=== PATIENT | female | born 1985 | race Caucasian/White ===

== ENCOUNTER → 2016-12-19 | Outpatient (CLI) | payer OTHER | LOC: FIMAGING 12:31 | PROVIDERS: ATTEND Obstetrics & Gynecology | DX: Z34.81 Encounter for supervision of other normal pregnancy, first trimester (principal); Z3A.12 12 weeks gestation of pregnancy ==

== ENCOUNTER → 2017-02-06 | Outpatient (CLI) | payer OTHER | LOC: FIMAGING 08:10 | PROVIDERS: ATTEND Obstetrics & Gynecology | DX: Z34.92 Encounter for supervision of normal pregnancy, unspecified, second trimester (principal); Z3A.19 19 weeks gestation of pregnancy ==

== ENCOUNTER 2017-06-26 18:00 | Inpatient (IN) | payer OTHER ==
[2017-06-26] MEDS ORDERED: LR 500 ML IV PRN (19:03)
[2017-06-26] MEDS ORDERED: OLIVE OIL 118 ML BTL MISC PRN (19:12)
[2017-06-26] MEDS ORDERED: LIDOCAINE 1% 300 MG/30 ML SDV SC PRN (19:12)
[2017-06-26] MEDS ORDERED: LR 1,000 ML IV PRN (19:12)
[2017-06-26] MEDS ORDERED: TERBUTALINE SULFATE 1 MG/ML VIAL IV PRN (19:12)
[2017-06-26] MEDS ORDERED: EPSOM SALT 454 GM TP PRN (19:12)
[2017-06-26] MEDS ORDERED: OXYTOCIN/RINGERS LACTATE 500 ML IV SCH (19:30)
[2017-06-26] MEDS ORDERED: OLIVE OIL 118 ML BTL ONE (20:02)
[2017-06-26] MEDS ORDERED: MISOPROSTOL 200 MCG TAB ONE (20:02)
[2017-06-26] MEDS ORDERED: LIDOCAINE 1% 300 MG/30 ML SDV ONE (20:02)
[2017-06-26] MEDS ORDERED: AMMONIA AROMATIC 1 EACH AMP IH ONE (20:02)
[2017-06-26] MEDS ORDERED: TERBUTALINE SULFATE 1 MG/ML VIAL ONE (20:02)
[2017-06-26] MEDS ORDERED: OXYTOCIN 10 UNIT/ML VIAL ONE (20:02)
[2017-06-26 20:03] LABS: % IMMATURE GRANULYOCYTES 0.6 % (0.0-1.1); ABSOLUTE IMMATURE GRANULOCYTES 0.07 10^3/uL (0.00-0.10); ADD DIFF? NO; ADD MORPH? NO; ADD SCAN? NO; ATYPICAL LYMPHOCYTE FLAG 0 (0-99); FRAGMENT RBC FLAG 0 (0-99); HEMATOCRIT 36.7 % (38.0-47.0); HEMOGLOBIN 12.2 g/dL (12.6-16.3); LEFT SHIFT FLG 0 (0-99); LIPEMIA HEMOLYSIS FLAG 80 (0-99); MEAN CELL HEMOGLOBIN 31.3 pg (27.9-34.1); MEAN CELL HEMOGLOBIN CONCENTR. 33.2 g/dL (32.4-36.7); MEAN CELL VOLUME 94.1 fL (81.5-99.8); MEAN PLATELET VOLUME 12.4 fL (8.7-11.7); PLATELET CLUMPS FLAG 20 (0-99); PLATELET COUNT 235 10^3/uL (150-400); RED CELL DISTRIBUTION WIDTH 13.2 % (11.5-15.2)
--- NOTE | 2017-06-26 20:05 | OBPROG ---
Labor Progress Note Assessment/Plan: Assessment:cat 1 fhr denies pain irregular contractions exam 380/-1 cephalic pitocin per protocol continuous monitoring Plan:pitocin per protocol epidural arom when able 06/26/17 20:05 Subjective/Intrapartum Course: 32 yo edc 06/27/2017 came over from the office with decreased movement for iol. exam in the office today 380/-1 cephalic. 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 Patient is RH negative significant other Gus. Cat 1 fhr on admission. pitocin per protocol for poc epidural and arom patient and family in agreement 06/26/17 19:52 - SVE Dilation (cm): 3 Effacement (%): 80 Station: -1 Membranes: Intact - Physical Exam General Appearance: WD/WN, alert, no apparent distress Respiratory: chest non-tender, lungs clear, normal breath sounds Cardiac/Chest: regular rate, rhythm Abdomen: normal bowel sounds Extremities: normal range of motion, Michelle's sign (negative bilaterally) DTR- Lower Extremities: Knee (R): 1+, Knee (L): 1+ Skin: normal color, warm/dry Neuro/Psych: no motor/sensory deficits, alert, normal mood/affect, oriented x 3 Oxytocin Orders Assessment - Pre-Induction/Augmentation Assessment Gestational Age: 39 week(s) and 6 day(s) ICD10 Worksheet Patient Problems: Problems Problem Status Onset Post-dates Acute
[2017-06-26] MEDS ORDERED: OXYTOCIN 30 UNIT in LR 500 ML IV SCH (20:30)
--- NOTE | 2017-06-26 20:36 | GHP ---
[f rep st] HISTORY AND PHYSICAL DATE OF ADMISSION: 06/26/2017 HISTORY OF PRESENT ILLNESS: The patient is a 32-year-old 2, para 1, living 1, with an EDC of 06/27/2017, who is 39 and 6/7 weeks, who comes to Labor and Delivery tonight with decreased movement for an elective induction of labor. [place] [facility] [place] Category 1 heart rate on admission. Denies leaking or bleeding. Feeling irregular cramping. Cephalic on exam in office today on 06/26/2017. Decided on induction of labor because of decreased movement today. Patient in the office today 3/80/-1.. MEDICAL HISTORY: Cystitis, history of HSV 2, prophylactic Valtrex from 36 weeks. GYNECOLOGIC HISTORY: Paragard discontinued in 06/2016, OCPs, NuvaRing, abnormal Pap in 2007, repeats have been within normal limits. SURGICAL HISTORY: [place] teeth extraction. FAMILY HISTORY: Noncontributory. SOCIAL HISTORY: The patient is . Denies drug use. Denies tobacco use. Denies alcohol use. PREVIOUS HISTORY: 01/2015, 7 pounds 7 ounces, 41 and 1/7th weeks, 9 hours of labor, spontaneous vaginal delivery with an epidural. Induction of labor for post dates. PHYSICAL ASSESSMENT: GENERAL: The patient is awake, alert, oriented x3. LUNGS : Clear bilaterally. ABDOMEN: Bowel sounds are positive in all 4 quadrants. EXTREMITIES: DTRs are 1+ bilaterally. Homans sign is negative bilaterally. PELVIC: Category 1 heart rate. Contractions are irregular. On exam, 3, 80 -1 cephalic. LABORATORY DATA: Patient is A negative. Antibody negative. RPR is nonreactive. Hepatitis is negative. Rubella is immune. HIV is negative. Trio screen in 2013 was negative. AFP is negative. Gonorrhea and chlamydia are negative. Pap on 06/30/2016 was negative. One-hour GTT was within normal limits. RhoGAM was received on 04/06/2017. Toxoplasmosis was negative. GBS is negative. PLAN OF CARE: Induction of labor for decreased movement at the patient's request at 39 and 6/7 weeks. Pitocin per protocol. Epidural for pain relief at patient's request. GBS is negative. Consult Dr. Sara Jimenes for plan of care. /[id number]/MODL MTDD
[2017-06-26] MEDS ORDERED: OXYTOCIN/RINGERS LACTATE 1,000 ML IV PRN (20:47)
[2017-06-26] MEDS ORDERED: PHENYLEPHRINE HCL 100 MCG/ML SYR ONE (23:32)
[2017-06-26] MEDS ORDERED: BUPIVACAINE 0.25% 30 ML SDV ONE (23:32)
[2017-06-26] MEDS ORDERED: fentaNYL 2MCG/ML/BUP 0.1% RTU 100 ML BAG EP ONE (23:32)
[2017-06-26] MEDS ORDERED: fentaNYL 100 MCG/2 ML INJ ONE (23:33)
[2017-06-27] MEDS ORDERED: PHENYLEPHRINE HCL 100 MCG/ML SYR IVP PRN (00:37)
[2017-06-27] MEDS ORDERED: ONDANSETRON 4 MG/2 ML VIAL IVP PRN (00:37)
--- NOTE | 2017-06-27 00:39 | POSTANESTH ---
Post Anesthetic Evaluation Cardiovascular Status: Normal, Stable Respiratory Status: Normal, Stable Level of Consciousness/Mental Status: Can Participate in Eval Pain Control: Adequate, Prn Tx Ordered Nausea/Vomiting Control: Adequate, Prn Tx Ordered Complications Possibly Related to Anesthesia: None Noted
--- NOTE | 2017-06-27 00:43 | PREANESOB ---
Obstetric Pre-Anesthesia Info - General Info Proposed Procedure: Labor and delivery with pitocin. : 2 Para: 0 WBD: 40 - Info Status: Full Term Monitors: External FHR Baseline (bpm): 130 FHR Pattern: Reassuring - Labor Status Cervical Dilation per last OB SVE: 3 Station per last OB SVE: -1 Pitocin: In Use Indications for Labor Analgesia: Induction of Labor, Pain Control Labor Epidural: Proposed Anesthesia ROS: Prior labor epidural. Benadryl causes agitation. Allergies/Adverse Reactions: Allergy/AdvReac Type Severity Reaction Status Date / Time No Known Allergies Allergy Verified 06/26/17 19:29 Home Medications: Medication Instructions Recorded Iron/Docusate Sodium 65 mg PO DAILY 06/26/17 [Benita-Sequels 65 mg] 1 tab PO DAILY 06/26/17 valACYclovir [Valtrex (*)] 1 tab PO DAILY 06/26/17 Visit Medications: Generic Name Dose Route Start Last Admin Trade Name Freq PRN Reason Stop Dose Admin Lactated Ringer's 500 mls @ 500 mls/hr 06/26/17 19:03 Lr IV PRN PRN Maternal Hypotension Lactated Ringer's 1,000 mls @ 0 mls/hr 06/26/17 19:12 Lr IV 12/23/17 19:11 PRN PRN SEE PROTOCOL CONDITIONS Protocol Per Protocol Oxytocin 30 unit/ Lactated 503 mls @ 0 mls/hr 06/26/17 20:30 Ringer's IV 12/23/17 19:29 CONT JULISSA Protocol Per Protocol Oxytocin/Lactated Ringer's 1,000 mls @ 150 mls/hr 06/26/17 20:47 Pitocin 20 Units/Lr (Premix) IV PRN PRN Post- bleeding Fentanyl/Bupivacaine HCl 100 mls @ 0 mls/hr 06/27/17 01:00 Fentanyl/Bupivacaine/Ns 2 Mcg/Ml 0.1% (Premix EP 07/07/17 00:59 CONT JULISSA Protocol As Directed Lactated Ringer's 500 mls @ 0 mls/hr 06/27/17 01:00 Lr IV 12/24/17 00:59 CONT [facility] As Directed Ibuprofen 600 mg 06/26/17 19:12 Motrin PO 12/23/17 19:11 Q6HRS PRN post , inflammation Lidocaine HCl 300 mg 06/26/17 19:12 Lidocaine Hcl 1% SC 12/23/17 19:11 ONCE PRN episiotomy Magnesium Sulfate 454 gm 06/26/17 19:12 Epsom Salt TP 12/23/17 19:11 Q1H PRN perineal discomfort [place] Oil 118 ml 06/26/17 19:12 Sweet Oil MISC 12/23/17 19:11 ONCE PRN perineal massage Ondansetron HCl 4 mg 06/27/17 00:37 Zofran IVP 12/24/17 00:36 Q4HRS PRN Nausea/Vomiting, Can't Take PO Phenylephrine HCl 100 mcg 06/27/17 00:37 Neosynephrine IVP 12/24/17 00:36 .Q2M PRN Hypotension Terbutaline Sulfate 0.25 mg 06/26/17 19:12 Brethine IV 12/23/17 19:11 ONCE PRN Tachysystole Discontinued Medications Generic Name Dose Route Start Last Admin Trade Name Freq PRN Reason Stop Dose Admin Ammonia (Aromatic Spirit) Confirm 06/26/17 20:02 Ammonia Aromatic Administered 06/26/17 20:03 Dose 1 each IH .STK-MED ONE Bupivacaine HCl Confirm 06/26/17 23:32 Sensorcaine 0.25% Sdv Administered 06/26/17 23:33 Dose 30 ml .ROUTE .STK-MED ONE Ephedrine Sulfate Confirm 06/26/17 20:02 Ephedrine Sulfate Administered 06/26/17 20:03 Dose 50 mg .ROUTE .STK-MED ONE Fentanyl Confirm 06/26/17 23:33 Sublimaze Administered 06/26/17 23:34 Dose 100 mcg .ROUTE .STK-MED ONE Fentanyl/Bupivacaine HCl Confirm 06/26/17 23:32 Fentanyl/Bupivacaine/Ns 2 Mcg/Ml 0.1% (Premix Administered 06/26/17 23:33 Dose 100 ml EP .STK-MED ONE Oxytocin/Lactated Ringer's 500 mls @ 0 mls/hr 06/26/17 19:30 Pitocin 30 Units/Lr (Premix) IV 12/23/17 19:29 CONT JULISSA Protocol Per Protocol Lidocaine HCl Confirm 06/26/17 20:02 Lidocaine Hcl 1% Administered 06/26/17 20:03 Dose 300 mg .ROUTE .STK-MED ONE Misoprostol Confirm 06/26/17 20:02 Cytotec Administered 06/26/17 20:03 Dose 1,000 mcg .ROUTE .STK-MED ONE [place] Oil Confirm 06/26/17 20:02 Sweet Oil Administered 06/26/17 20:03 Dose 118 ml .ROUTE .STK-MED ONE Oxytocin Confirm 06/26/17 20:02 Pitocin Administered 06/26/17 20:03 Dose 40 unit .ROUTE .STK-MED ONE Phenylephrine HCl Confirm 06/26/17 23:32 Neosynephrine Administered 06/26/17 23:33 Dose 1,000 mcg .ROUTE .STK-MED ONE Terbutaline Sulfate Confirm 06/26/17 20:02 Brethine Administered 06/26/17 20:03 Dose 1 mg .ROUTE .STK-MED ONE - Anesthesia History Response to Local Anesthetics: Normal Anesthesia & Operative History: No Prior Problems Family Anesthesia History: Negative - Social History Substance Use/Abuse: Denies - Focused Exam Blood Pressure: 104/67 Heart Rate: 85 Respiratory Rate: 16 Height/Weight (Nursing): Height 160.02 cm Weight 76.657 kg Physical Exam: Within normal limits. ASA Status: II Labs: 06/26/17 18:30 Patient ABO/Rh A NEGATIVE 06/26/17 18:30 - Plan Anesthetic Plan: MYRANDA Consent Signed and on Chart: Yes Patient/Guardian Understands and Agrees to Plan: Yes Urgent/Emergent Case: Dominic tai completed preop but documented later for safe timely pt care General Comments: Written consent signed after epidural.
[2017-06-27] MEDS ORDERED: LR 500 ML IV SCH (01:00)
[2017-06-27] MEDS ORDERED: fentaNYL 2MCG/ML/BUP 0.1% RTU 100 ML EP SCH (01:00)
--- NOTE | 2017-06-27 01:20 | OBPROG ---
Labor Progress Note Assessment/Plan: Assessment:cat 1 fhr epidural for pain relief comfortable denies pain q4 minutes pitocin at 7 mu exam 4/80/-1 cephalic pitocin per protocol continuous monitoring arom clear fluid Plan:expectant management of labor 06/26/17 20:05 06/27/17 01:18 Subjective/Intrapartum Course: 32 yo edc 06/27/2017 came over from the office with decreased movement for iol. exam in the office today 3/80/-1 cephalic. 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 Patient is RH negative significant other Gus. Cat 1 fhr on admission. pitocin per protocol for poc epidural and arom patient and family in agreement 06/26/17 19:52 Objective: 06/26/17 18:30 Patient ABO/Rh A NEGATIVE 06/26/17 18:30 Temp Pulse Resp BP Pulse Ox 85 16 104/67 06/27/17 00:45 06/27/17 00:45 06/27/17 00:45 - SVE Dilation (cm): 4 Effacement (%): 80 Station: -1 Membranes: AROM Amniotic Fluid Color: Clear - Contraction Pattern Assessment Current Contraction Pattern: Regular - Procedures Non-surgical Procedures: Amniotomy Oxytocin Orders Assessment - Pre-Induction/Augmentation Assessment Gestational Age: 39 week(s) and 6 day(s) ICD10 Worksheet Patient Problems: Problems Problem Status Onset Post-dates Acute
--- NOTE | 2017-06-27 02:46 | OBPROG ---
Labor Progress Note Assessment/Plan: Assessment:cat 2fhr epidural for pain relief comfortable denies pain q4 minutes pitocin at 7 mu exam 7/80/-1 cephalic pitocin off continuous monitoring clear fluid Plan:expectant management of labor 06/26/17 20:05 06/27/17 01:18 06/27/17 02:44 Subjective/Intrapartum Course: 32 yo edc 06/27/2017 came over from the office with decreased movement for iol. exam in the office today 3/80/-1 cephalic. 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 Patient is RH negative significant other Gus. Cat 1 fhr on admission. pitocin per protocol for poc epidural and arom patient and family in agreement 06/26/17 19:52 06/27/17 02:45 doing well denies difficulties. Pain well managed. Objective: 06/26/17 18:30 Patient ABO/Rh A NEGATIVE 06/26/17 18:30 Temp Pulse Resp BP Pulse Ox 85 16 104/67 06/27/17 00:45 06/27/17 00:45 06/27/17 00:45 - SVE Dilation (cm): 7 Effacement (%): 80 Station: 0 Amniotic Fluid Color: Clear - Contraction Pattern Assessment Current Contraction Pattern: Regular - Procedures Non-surgical Procedures: Amniotomy - AP [place]te[place] [facility] [place] 2 positive prophylaxis begun at 36 weeks 06/27/17 02:44 Oxytocin Orders Assessment - Pre-Induction/Augmentation Assessment Gestational Age: 39 week(s) and 6 day(s) ICD10 Worksheet Patient Problems: Problems Problem Status Onset Post-dates Acute
[2017-06-27] MEDS ORDERED: DOCUSATE SODIUM 100 MG CAP PO PRN (04:14)
[2017-06-27] MEDS ORDERED: ACETAMINOPHEN 325 MG TAB PO PRN (04:14)
[2017-06-27] MEDS ORDERED: HYDROCODONE/APAP 5/325 TAB PO PRN (04:14)
[2017-06-27] MEDS ORDERED: HYDROCORTISONE 0.5% CREAM TP PRN (04:14)
[2017-06-27] MEDS ORDERED: SIMETHICONE 80 MG TAB CHEW PO PRN (04:14)
--- NOTE | 2017-06-27 04:18 | OBDEL ---
Info Type: Vaginal Presentation at Delivery: Vertex L&D Analgesia/Anesthesia Type: Epidural GBS+: No - Hospital Course Intrapartum: 32 yo edc 06/27/2017 came over from the office with decreased movement for iol. exam in the office today 3/80/-1 cephalic. 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 Patient is RH negative significant other Gus. Cat 1 fhr on admission. pitocin per protocol for poc epidural and arom patient and family in agreement 06/26/17 19:52 06/27/17 02:45 doing well denies difficulties. Pain well managed. Indications for Delivery: Elective Vaginal Delivery - Delivery Provider Delivery Physician/CNM: Carmencita Menon Proctoring Provider: Sara Jimenes - Labor and Delivery Onset of Contractions Date: 06/26/17 Onset of Contractions Time: 22:00 Onset of Contractions Type: Induced Rupture of Membranes Date: 06/27/17 Rupture of Membranes Time: 01:09 Rupture of Membranes Type: Artificial Amniotic Fluid Color: Clear Dilation Complete Date: 06/27/17 Dilation Complete Time: 03:24 Placenta Delivery Date: 06/27/17 Placenta Delivery Time: 04:06 Total Hours of Labor: 6 Non-surgical Procedures: Amniotomy Vaginal Sponge Count Correct: Yes Vaginal Needle Count Correct: Yes EBL: 350 Delivery Events: Nuchal Cord - Medications Labor Augmentation/Induction Methods Used: Pitocin Labor Augmentation/Induction Indication: Other (Specify) (decreased movement elective IOL per patient request) [place] Data [place] Delivery Date: 06/27/17 Delivery Time: 03:57 STEPHANIE: 06/27/17 Gestational Age: 40 week(s) and 0 day(s) Sex of Infant: Male Score (1 Min): 8 Score (5 Min): 9 ICD10 Worksheet Patient Problems: Problems Problem Status Onset Post-dates Acute
[2017-06-27] MEDS: IBUPROFEN 600 MG TAB PO PRN ×3 (04:31→16:50)
[2017-06-27 08:11] VITALS: TEMP 97.7
--- NOTE | 2017-06-28 10:20 | OBPP ---
Progress Note Assessment/Plan: Assessment: ppd# 1 s/p breast feeding anemia rh negative baby rh negative Plan: iron routine post care and discharge instructions 06/28/17 10:19 Subjective/ Course: 06/28/17 10:19 patient is doing well. pain is well controlled. breast feeding is going well. denies headache and changes in vision. ready to go home. normal lochia. Objective: 06/28/17 04:33 Patient ABO/Rh A NEGATIVE 06/27/17 06:00 Temp Pulse Resp BP Pulse Ox 36.5 C 78 16 96/68 L 95 06/27/17 20:00 06/27/17 20:00 06/27/17 20:00 06/27/17 20:00 06/27/17 20:00 Physical Exam - Physical Exam Neck: non-tender, full range of motion Respiratory: chest non-tender, lungs clear, normal breath sounds Cardiac/Chest: normal peripheral pulses, regular rate, rhythm Abdomen: normal bowel sounds, non-tender Skin: normal color, warm/dry Neuro/Psych: no motor/sensory deficits, alert, normal mood/affect, oriented x 3
--- NOTE | 2017-06-28 10:22 | OBGCSDC ---
General Delivery Information - General Info : 2 Para: 2 Abortions: 0 Type: Vaginal L&D Analgesia/Anesthesia Type: Epidural Admission Date: 06/26/17 Labs: Patient ABO/Rh A NEGATIVE 06/27/17 06:00 Hct 32.7 % (38.0-47.0) L 06/28/17 04:33 - Hospital Course Antepartum: transfer [place] [facility] [place], hsv 2 positive prophylaxis begun at 36 weeks 06/27/17 02:44 Intrapartum: 32 yo edc 06/27/2017 came over from the office with decreased movement for iol. exam in the office today /-1 cephalic. 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 Patient is RH negative significant other Gus. Cat 1 fhr on admission. pitocin per protocol for poc epidural and arom patient and family in agreement 06/26/17 19:52 06/27/17 02:45 doing well denies difficulties. Pain well managed. : 06/28/17 10:19 patient is doing well. pain is well controlled. breast feeding is going well. denies headache and changes in vision. ready to go home. normal lochia. Vaginal - Delivery Provider Delivery Physician/CNM: Carmencita Menon - Diagnosis Labor: Induced Rupture of Membranes Type: Artificial Amniotic Fluid Color: Clear Delivery Events: Nuchal Cord - Procedures Non-surgical Procedures: Amniotomy - Delivery Non-surgical Procedures: Amniotomy EBL: 350 [place] Data [place] Delivery Date: 06/27/17 Delivery Time: 03:57 STEPHANIE: 06/27/17 Gestational Age: 40 week(s) and 1 day(s) Sex of Infant: Male Weight (gm): 0 g Score (1 Min): 8 Score (5 Min): 8 Discharge Information - Discharge Information Condition: Good Instruction/Follow Up: Four Weeks, Six Weeks
[2017-06-28] MEDS ORDERED: IRON POLYSAC/IRON HEME 28 MG TAB PO SCH (10:30)
[2017-06-28 11:14] VITALS: BP 96/65; PULSE 68; RESP 22; O2SAT 94
== END 2017-06-28 20:50 | disposition home or self-care (01) | DRG 774 ==
LOC: FLD 18:00 → FOB 06-27 08:09
PROVIDERS: ADMIT Advanced Practice Midwife; ATTEND Advanced Practice Midwife
PROC: 10907ZC Drainage of Amniotic Fluid, Therapeutic from Products of Conception, Via Natural or Artificial Opening (ICD-10-PCS; principal; 2017-06-26)
PROC: 3E033VJ Introduction of Other Hormone into Peripheral Vein, Percutaneous Approach (ICD-10-PCS; principal; 2017-06-26)
PROC: 10E0XZZ Delivery of Products of Conception, External Approach (ICD-10-PCS; principal; 2017-06-26)
DX: O36.8130 Decreased fetal movements, third trimester, not applicable or unspecified (principal); O98.52 Other viral diseases complicating childbirth; B00.9 Herpesviral infection, unspecified; Z37.0 Single live birth; Z3A.39 39 weeks gestation of pregnancy; O69.82X0 Labor and delivery complicated by other cord entanglement, without compression, not applicable or unspecified
CPT/HCPCS: J2370; J2590; J3010; J3105